=== PATIENT | female | born 1995 ===

== ENCOUNTER 2023-11-23 12:41 | Outpatient (CLI) | payer OTHER | END 2023-11-23 12:44 | disposition home or self-care (01) | LOC: PRENATAL 12:41 | PROVIDERS: ATTEND Obstetrics & Gynecology Maternal & Fetal Medicine | DX: O36.80X0 Pregnancy with inconclusive fetal viability, not applicable or unspecified (principal); Z36.82 Encounter for antenatal screening for nuchal translucency; O24.911 Unspecified diabetes mellitus in pregnancy, first trimester; Z3A.11 11 weeks gestation of pregnancy ==

== ENCOUNTER → 2024-01-26 08:24 | Outpatient (CLI) | payer OTHER | END | disposition home or self-care (01) | LOC: PRENATAL 08:24 | PROVIDERS: ATTEND Obstetrics & Gynecology Maternal & Fetal Medicine | DX: O35.3XX0 Maternal care for (suspected) damage to fetus from viral disease in mother, not applicable or unspecified (principal); O44.00 Complete placenta previa NOS or without hemorrhage, unspecified trimester; O24.319 Unspecified pre-existing diabetes mellitus in pregnancy, unspecified trimester; Z3A.20 20 weeks gestation of pregnancy ==

== ENCOUNTER 2024-03-20 10:54 | Outpatient (CLI) | payer OTHER | END 2024-03-20 11:03 | disposition home or self-care (01) | LOC: PRENATAL 10:54 | PROVIDERS: ATTEND Obstetrics & Gynecology Maternal & Fetal Medicine | DX: O26.849 Uterine size-date discrepancy, unspecified trimester (principal); O24.319 Unspecified pre-existing diabetes mellitus in pregnancy, unspecified trimester; Z3A.28 28 weeks gestation of pregnancy ==

== ENCOUNTER 2024-04-13 10:04 | Outpatient (CLI) | payer OTHER | END 2024-04-13 10:05 | disposition home or self-care (01) | LOC: PRENATAL 10:04 | PROVIDERS: ATTEND Obstetrics & Gynecology Maternal & Fetal Medicine | DX: O26.849 Uterine size-date discrepancy, unspecified trimester (principal); O36.8199 Decreased fetal movements, unspecified trimester, other fetus; O24.319 Unspecified pre-existing diabetes mellitus in pregnancy, unspecified trimester; Z3A.32 32 weeks gestation of pregnancy ==

== ENCOUNTER 2024-05-08 09:12 | Outpatient (CLI) | payer OTHER | END 2024-05-08 09:13 | disposition home or self-care (01) | LOC: PRENATAL 09:12 | PROVIDERS: ATTEND Obstetrics & Gynecology Maternal & Fetal Medicine | DX: O26.843 Uterine size-date discrepancy, third trimester (principal); O36.8130 Decreased fetal movements, third trimester, not applicable or unspecified; O24.313 Unspecified pre-existing diabetes mellitus in pregnancy, third trimester; Z3A.35 35 weeks gestation of pregnancy ==